=== PATIENT | male | born 1985 | race Caucasian/White ===

== ENCOUNTER 2019-07-27 19:02 | Emergency (ER) | payer BC ==
--- NOTE | 2019-07-27 19:56 | ED ---
Skin Complaint - HPI Summary HPI Summary: Patient is a 34 year old male who has a chief complaint of multiple skin abscesses on his right arm. Patient states he noticed what appeared to be a pimple on his right forearm 5 days ago. At this time he tried to pop it with a knife. The lesions have since increased in number. He continues to drain them. States that he was using hydrogen peroxide daily until today when he started using triple antibiotic ointment. States that the entire dorsal aspect of his right forearm is painful, swollen, and warm. Notes that the pain and redness goes up his arm. Has not noticed a fever. Denies nausea or vomiting. No history of MRSA. - History of Current Complaint Chief Complaint: EDRashSkinAbscess Time Seen by Provider: 07/27/19 19:39 Stated Complaint: RT ARM PAIN PER PT Pain Intensity: 5 - Allergy/Home Medications Allergies/Adverse Reactions: Allergies Allergy/AdvReac Type Severity Reaction Status Date / Time No Known Allergies Allergy Verified 07/27/19 19:07 PMH/Surg Hx/FS Hx/Imm Hx Endocrine/Hematology History: Denies: Hx Anticoagulant Therapy Respiratory History: Denies: Hx Asthma Musculoskeletal History: Reports: Other Musculoskeletal History - OCC RIGHT SCIATIC PAIN Sensory History: Reports: Hx Contacts or Glasses - GLASSES Denies: Hx Hearing Aid Opthamlomology History: Reports: Hx Contacts or Glasses - GLASSES - Surgical History Surgery Procedure, Year, and Place: AGE 16 RIGHT INGUINAL [place]ERNIA. [place] [facility] [place] [facility] [place] Anesthesia Reactions: No - Immunization History Date of Tetanus Vaccine: Last year, per patient Date of Influenza Vaccine: None Infectious Disease History: No Infectious Disease History: Denies: Traveled Outside the [place] in Last 30 Days - Family History Known Family History: Positive: Non-Contributory - Social History Alcohol Use: Daily Alcohol Amount: 1-2 BEERS/DAY Substance Use Type: Reports: None Smoking Status (MU): Heavy Every Day Tobacco Smoker Type: Cigarettes Amount Used/How Often: 1 PPD Length of Time of Smoking/Using Tobacco: 10 YRS Have You Smoked in the Last Year: Yes Review of Systems Constitutional: Negative Eyes: Negative ENT: Negative Cardiovascular: Negative Respiratory: Negative Gastrointestinal: Negative Genitourinary: Negative Musculoskeletal: Negative Positive: Other - Multiple painful abscesses on the dorsal aspect of right, warmth that extends from dorsal forearm up arm Neurological: Negative Psychological: Normal All Other Systems Reviewed And Are Negative: Yes Physical Exam Triage Information Reviewed: Yes Vital Signs On Initial Exam: Initial Vitals Temp Pulse Resp BP Pulse Ox 98.2 F 86 16 131/100 100 07/27/19 19:04 07/27/19 19:04 07/27/19 19:04 07/27/19 19:04 07/27/19 19:04 Vital Signs Reviewed: Yes Appearance: Positive: Well-Appearing, No Pain Distress, Well-Nourished Skin: Positive: Warm, Skin Color Reflects Adequate Perfusion, Dry, Other - Abscess on dorsal forearm with 5 cm diamter of indurataion, central punctate. Erythematous. Warm and tender to the touch. Smaller 1-2 cm healing lesion noted distal. No tunneling. Streaking noted up right arm. Head/Face: Positive: Normal Head/Face Inspection Eyes: Positive: Normal, EOMI ENT: Positive: Normal ENT inspection Neck: Positive: Supple, Nontender, No Lymphadenopathy Respiratory/Lung Sounds: Positive: Clear to Auscultation Cardiovascular: Positive: Normal, RRR, S1, S2 Musculoskeletal: Positive: Normal Neurological: Positive: Normal Psychiatric: Positive: Normal Procedures - Sedation Patient Received Moderate/Deep Sedation with Procedure: No - Incision and Drainage right arm Site: right arm Anesthesia: Local Instrument(s): Scalpel Diagnostics - Vital Signs Vital Signs Temp Pulse Resp BP Pulse Ox 07/27/19 19:04 98.2 F 86 16 131/100 100 - Laboratory Lab Statement: Any lab studies that have been ordered have been reviewed, and results considered in the medical decision making process. Course/Dx - Course Course Of Treatment: 34 year old male who presnts with 5 days of worsening skin lesion. Patient admits to draining with knife. Right forearm erythematous, warm , swollen, and tender. 5 cm diameter abscess with central punctation noted. Abscess drained by FRACISCO Calles. Clidamycin sent to pharmacy. Patient understands and agrees with this plan. - Differential Diagnoses - Skin Complaint Differential Diagnoses: Abscess, Cellulitis, Contact Dermatitis - Diagnoses Provider Diagnoses: Abscess of left arm Discharge ED - Sign-Out/Discharge Documenting (check all that apply): Patient Departure - Discharge Plan Condition: Good Disposition: HOME Prescriptions: Clindamycin Cap(NF) [Clindamycin Cap 300 mg Cap(NF)] 300 mg PO TID #29 cap Patient Education Materials: Abscess (ED) Referrals: [facility] [Outside] Additional Instructions: Take antibiotic three a day for 10 days, first dose given in ED Apply warm compresses to area Take ibuprofen or Tylenol for pain every 6 hours Follow up with primary within 3 days Return to ED if develop fever, area of redness spreads, or any new or worsening symptoms - Billing Disposition and Condition Condition: GOOD Disposition: Home
[2019-07-27] MEDS ORDERED: Lidocaine 1% MPF ** 5 ML VIAL INJ ONE (20:04)
[2019-07-27] MEDS ORDERED: Clindamycin CAP* 150 MG PO ONE (20:27)
[2019-07-27 21:13] VITALS: BP 128/81
--- NOTE | 2019-07-30 05:40 | ED ---
Imaging and Labs Follow Up Follow Up Type: Labs/Cultures Labs/Culture Result: Wound Culture MRSA positive, Pt treated appropriately with clindamycin. Patient Communication/Plan: Pt treated appropriately, nothing further at this time. Provider Diagnoses: Abscess of left arm
== END 2019-07-27 21:11 | disposition home or self-care (01) ==
LOC: ED 19:02
DX: L02.413 Cutaneous abscess of right upper limb (principal); F17.210 Nicotine dependence, cigarettes, uncomplicated
CPT/HCPCS: 10060; 87070; 87077; 87186; 87205; 87640; 87641; 99283; A9270-GY

== ENCOUNTER 2019-07-28 19:19 | Observation (INO) | payer BC ==
[2019-07-28] MEDS ORDERED: NS 0.9% 1000 ML** 1,000 ML IV.FLUID IV ONE (19:29)
[2019-07-28] MEDS ORDERED: Vancomycin(*) 1,500 MG in NS 0.9% 250 ML* 250 ML IVPB ONE (19:36)
[2019-07-28] MEDS ORDERED: LORazepam INJ* 2 MG/ML 1 ML VIAL IV PUSH ONE (19:39)
[2019-07-28] MEDS ORDERED: Lorazepam PYXIS KEY PRN (19:39)
[2019-07-28] MEDS ORDERED: Lorazepam PYXIS KEY ONE (19:42)
[2019-07-28 19:59] LABS: ABS Basophils 0.1 10^3/ul (0-0.2); ABS Eosinophils 0.5 10^3/ul (0-0.6); ABS Lymphocytes 1.8 10^3/ul (1.0-4.8); ABS Monocytes 1.3 10^3/ul (0-0.8); ABS Neutrophils 12.8 10^3/ul (1.5-7.7); Eosinophil % 2.8 %; Hematocrit 44 % (42-52); Hemoglobin 15.5 g/dL (14.0-18.0); Mean Corpuscular HGB Conc 35 g/dL (31-36); Mean Corpuscular Hemoglobin 32 pg (27-31); Mean Corpuscular Volume 90 fL (80-94); Mean Platelet Volume 9.6 fL (7.4-10.4); Nucleated Red Blood Cells % 0.1; Platelet Count 171 10^3/uL (150-450); Red Blood Count 4.93 10^6 /uL (4.18-5.48); Red Cell Distribution Width 13 % (10-15); White Blood Count 16.4 10^3/uL (3.5-10.8)
[2019-07-28 20:07] LABS: Activated Partial Thrombo Time 37.2 seconds (26.0-38.0)
--- NOTE | 2019-07-28 20:10 | ED ---
Skin Complaint - HPI Summary HPI Summary: 34 year old female presents with worsening rash today. He had an abscess on his arm that was drained yesterday. He states he started the antibiotic last night. He took 5 doses of the antibiotic so far. He states the redness has been spreading. Admits to chills but no fevers. The area has become more swollen. He has never had this before. He is not diabetic. 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 no chest pain, sob, cough. no other symptoms. - History of Current Complaint Chief Complaint: EDExtremityUpper Time Seen by Provider: 07/28/19 19:28 Stated Complaint: ABCESS ON ARM Pain Intensity: 6 - Allergy/Home Medications Allergies/Adverse Reactions: Allergies Allergy/AdvReac Type Severity Reaction Status Date / Time No Known Allergies Allergy Verified 07/27/19 19:07 Home Medications: Home Medications Ibuprofen 600 mg PO QID PRN 07/28/19 [History Confirmed 07/28/19] PMH/Surg Hx/FS Hx/Imm Hx Endocrine/Hematology History: Denies: Hx Anticoagulant Therapy, Hx Diabetes Respiratory History: Denies: Hx Asthma Musculoskeletal History: Reports: Other Musculoskeletal History - OCC RIGHT SCIATIC PAIN Sensory History: Reports: Hx Contacts or Glasses - GLASSES Denies: Hx Hearing Aid Opthamlomology History: Reports: Hx Contacts or Glasses - GLASSES - Surgical History Surgery Procedure, Year, and Place: AGE 16 RIGHT INGUINAL HERNIA. APPENDECTOMY 2014 [facility]. LEFT INGUINAL HERNIA 2014 [facility] Hx Anesthesia Reactions: No - Immunization History Date of Tetanus Vaccine: Last year, per patient Date of Influenza Vaccine: None Infectious Disease History: No Infectious Disease History: Denies: Traveled Outside the [place] in Last 30 Days - Family History Known Family History: Positive: Non-Contributory - Social History Alcohol Use: Weekly Alcohol Amount: 1-2 BEERS/DAY Substance Use Type: Reports: None Smoking Status (MU): Heavy Every Day Tobacco Smoker Type: Cigarettes Amount Used/How Often: 1 PPD Length of Time of Smoking/Using Tobacco: 10 YRS Have You Smoked in the Last Year: Yes Review of Systems Negative: Fever Negative: Chest Pain Negative: Shortness Of Breath Positive: Rash All Other Systems Reviewed And Are Negative: Yes Physical Exam Triage Information Reviewed: Yes Vital Signs On Initial Exam: Initial Vitals Temp Pulse Resp BP Pulse Ox 97.5 F 105 18 132/90 100 07/28/19 19:21 07/28/19 19:21 07/28/19 19:21 07/28/19 19:21 07/28/19 19:21 Vital Signs Reviewed: Yes Appearance: Positive: Well-Appearing Skin: Positive: Warm, Dry, Other - has abscess on right arm with streaking up right arm and down right arm Head/Face: Positive: Normal Head/Face Inspection Eyes: Positive: Normal, Conjunctiva Clear ENT: Positive: Pharynx normal Respiratory/Lung Sounds: Positive: Clear to Auscultation, Breath Sounds Present Cardiovascular: Positive: Normal, RRR Musculoskeletal: Positive: Strength/ROM Intact - right arm, Other - good pulses Neurological: Positive: Normal Psychiatric: Positive: Normal Procedures - Sedation Patient Received Moderate/Deep Sedation with Procedure: No Diagnostics - Vital Signs Vital Signs Temp Pulse Resp BP Pulse Ox 07/28/19 19:48 104 148/92 97 07/28/19 19:47 101 99 07/28/19 19:44 20 07/28/19 19:21 97.5 F 105 18 132/90 100 - Laboratory Lab Results: Lab Results 07/28/19 07/28/19 Range/Units 19:52 19:52 WBC 16.4 H (3.5-10.8) 10^3/uL RBC 4.93 (4.18-5.48) 10^6 /uL Hgb 15.5 (14.0-18.0) g/dL Hct 44 (42-52) % MCV 90 (80-94) fL MCH 32 H (27-31) pg MCHC 35 (31-36) g/dL RDW 13 (10-15) % Plt Count 171 (150-450) 10^3/uL MPV 9.6 (7.4-10.4) fL Neut % (Auto) 78.2 % Lymph % (Auto) 11.0 % Gilliam % (Auto) 7.7 % Eos % (Auto) 2.8 % Baso % (Auto) 0.3 % Absolute Neuts (auto) 12.8 H (1.5-7.7) 10^3/ul Absolute Lymphs (auto) 1.8 (1.0-4.8) 10^3/ul Absolute Monos (auto) 1.3 H (0-0.8) 10^3/ul Absolute Eos (auto) 0.5 (0-0.6) 10^3/ul Absolute Basos (auto) 0.1 (0-0.2) 10^3/ul Absolute Nucleated RBC 0.0 10^3/ul Nucleated RBC % 0.1 INR (Anticoag Therapy) 1.00 (0.82-1.09) APTT 37.2 (26.0-38.0) seconds Result Diagrams: 07/28/19 19:52 07/28/19 19:52 Lab Statement: Any lab studies that have been ordered have been reviewed, and results considered in the medical decision making process. Course/Dx - Course Course Of Treatment: 34 year old female presents with worsening rash today. He had an abscess on his arm that was drained yesterday. He states he started the antibiotic last night. He took 5 doses of the antibiotic so far. He states the redness has been spreading. Admits to chills but no fevers. The area has become more swollen. He has never had this before. He is not diabetic. 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 On exam has diffuse erythema of the right arm. Has the draining abscess noted with no fluctuation but is indurate present. wbc 18. With worsening rash will admit. dr nelson agrees to admit. - Differential Diagnoses - Skin Complaint Differential Diagnoses: Abscess, Cellulitis, Contact Dermatitis - Diagnoses Provider Diagnoses: Cellulitis of right arm Discharge ED - Sign-Out/Discharge Documenting (check all that apply): Patient Departure - Discharge Plan Condition: Stable Disposition: ADMITTED TO [facility] - Billing Disposition and Condition Condition: STABLE Disposition: Admitted to [facility]
[2019-07-28 20:15] LABS: Albumin/Globulin Ratio 1.4 (1-3); BUN/Creatinine Ratio 18.2 (8-20); C Reactive Protein 87.42 mg/L (<8.01); Calcium 9.5 mg/dL (8.6-10.3); EGFR African American 118.6 (>60); Globulin 2.9 g/dL (2-4); Potassium 3.8 mmol/L (3.5-5.0); Total Bilirubin 0.8 mg/dL (0.2-1.0); Total Protein 6.9 g/dL (6.4-8.9)
[2019-07-28] MEDS ORDERED: Acetaminophen TAB* 325 MG PO PRN (21:36)
[2019-07-28] MEDS ORDERED: Vancomycin(*) 1,000 MG in NS 0.9% 250 ML* 250 ML IVPB ONE (21:39)
[2019-07-28] MEDS ORDERED: Nicotine* 2MG (FRUIT FLAVOR) GUM PO PRN (21:41)
[2019-07-28] MEDS ORDERED: Ibuprofen TAB* 600 MG PO PRN (21:41)
[2019-07-28] MEDS ORDERED: LORazepam TAB(*) 0.5 MG PO PRN (21:41)
[2019-07-28] MEDS ORDERED: Vancomycin per Pharmacy* NOTE FOLLOW UP SCH (22:00)
[2019-07-28] MEDS: NS 0.9% 1000 ML** 1,000 ML IV SCH (22:58)
[2019-07-28] MEDS: Heparin VIAL(*) 5000 UNITS/ML VIAL (FIVE THOUSAND) SUBCUT SCH (23:33)
[2019-07-28] MEDS: Nicotine PATCH 21 MG/24 HR* PATCH TRANSDERM SCH (23:34)
--- NOTE | 2019-07-29 01:25 | HP ---
HISTORY AND PHYSICAL: DATE OF ADMISSION: 07/28/19 PRIMARY CARE PROVIDER: None. CHIEF COMPLAINT: Right arm cellulitis, worse. HISTORY OF PRESENT ILLNESS: Micah Kuhn is a 34-year-old male who had an I and D of his right arm abscess yesterday by ED provider. The patient was placed on clindamycin and received several doses of clindamycin for the past 24 hours. The patient noted that he has more swelling and erythema in his right arm today. His temperature was 99.1. He came into the ED for evaluation. His cellulitis appears to have spread close to his right axillary region and he is going to be placed on overnight observation with diagnosis of sepsis and cellulitis. Of note, a sample was taken from the abscess yesterday, positive for MRSA. PAST MEDICAL HISTORY: 1. Inguinal hernia repair. 2. Appendectomy. MEDICATIONS: Include: 1. Clindamycin 300 mg 3 times a day. 2. Ibuprofen on a p.r.n. basis. ALLERGIES: No known drug allergies. FAMILY HISTORY: Both parents healthy. SOCIAL HISTORY: The patient smokes a pack per day and he started smoking when he was a teenager. He drinks a 12-pack of beer at night on weekends, does not drink during the weekdays. 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 He lives with his , Shonda, who is a surrogate. REVIEW OF SYSTEMS: Please see history of present illness. In addition, to the above mentioned, the patient noted "shakes" when he was in the ED. He received 2 doses of intravenous Ativan. He stated that sometimes he gets anxious "like that." I questioned if the patient had rigors. Currently, he feels relaxed. He stated that he did not experience any fevers at home. All the remaining 12 systems were reviewed with the patient and were otherwise negative. PHYSICAL EXAMINATION GENERAL: The patient is a very pleasant 34-year-old, obese male, who is in no acute distress. Alert and oriented x3. VITAL SIGNS: Blood pressure of 135/81, heart rate of 96 and regular, respiratory rate 14, oxygen saturation 97% on room air, and temperature 98.1. HEENT: Head: Atraumatic, normocephalic. Eyes: Pupils are equal, reactive to light and accommodation. Oropharynx is clear. Mucosa moist. Very poor dentition. NECK: Supple. No JVD. No bruits bilaterally. RESPIRATORY: Clear to auscultation bilaterally. CARDIOVASCULAR: Regular rate and rhythm. No murmur. ABDOMEN: Soft, nontender. Bowel sounds are present in all 4 quadrants. EXTREMITIES: In the right upper extremity, tense and swollen with a small area of opened up cyst of approximately half of a centimeter draining purulent substance, approximately 10 cm, from the patient wrist on the lateral aspect of the right arm. From there, the edema and erythema spreads up to close the patient's right axillary region. NEURO: Speech is clear. Cranial nerves II through XII grossly intact. Motor strength is 5/5 bilaterally. PSYCHIATRIC: Oriented x3 with no evidence of anxiety, depression. SKIN: On evaluation of the remaining part of the skin, the patient has rather poor hygiene, but no other abscesses or cellulitis noted. No other rashes noted. DIAGNOSTIC STUDIES/LAB DATA: White blood cell count 15.4, hemoglobin 15.5, hematocrit 44, and platelets 171. Sodium 137, potassium 3.8, chloride 105, carbon dioxide 26, BUN 16, creatinine 0.88. C-reactive protein 87. ASSESSMENT AND PLAN: 1. Sepsis due to methicillin-resistant Staphylococcus aureus infection of the right forearm. The patient is going to be placed on overnight observation, treated with vancomycin. Administered intravenous fluids. His lactic acid is 1 today. He did receive nearly 3 L of intravenous bolus in the ED. 2. Anxiety. I questioned if the patient had rigors in the ED. Nevertheless, I will continue Ativan on as needed basis. 3. For DVT prophylaxis, the patient is going to be placed on heparin subcutaneously. He is at moderate risk. 4. The patient's code status is full. His surrogate is his . TIME SPENT: Approximately 65 minutes was spent on admission of this patient, more than half that time was spent [id number] with the patient during the interview and physical exam. [id number]/[facility] #: [id number] [facility] HEALTH SYSTEMKamran
[2019-07-29] MEDS: Vancomycin(*) 1,000 MG in NS 0.9% 250 ML* 250 ML IV SCH ×3 (03:14→16:21)
[2019-07-29 03:37] LABS: Urine Appearance Clear; Urine Bilirubin Negative (Negative); Urine Blood Negative (Negative); Urine Color Yellow; Urine Glucose Negative (Negative); Urine Ketones Trace (Negative); Urine Nitrite Negative (Negative); Urine Protein Negative (Negative); Urine Specific Gravity 1.016 (1.010-1.030); Urine Urobilinogen Negative (Negative)
[2019-07-29 04:49] LABS: ABS Basophils 0.1 10^3/ul (0-0.2); ABS Eosinophils 0.5 10^3/ul (0-0.6); ABS Lymphocytes 1.8 10^3/ul (1.0-4.8); Eosinophil % 3.6 %; Hematocrit 41 % (42-52); Hemoglobin 14.3 g/dL (14.0-18.0); Lymphocyte % 13.6 %; Mean Corpuscular HGB Conc 35 g/dL (31-36); Mean Corpuscular Hemoglobin 32 pg (27-31); Mean Corpuscular Volume 90 fL (80-94); Mean Platelet Volume 9.7 fL (7.4-10.4); Platelet Count 149 10^3/uL (150-450); Red Blood Count 4.52 10^6 /uL (4.18-5.48); Red Cell Distribution Width 13 % (10-15); White Blood Count 13.4 10^3/uL (3.5-10.8)
[2019-07-29 04:55] LABS: BUN/Creatinine Ratio 15.9 (8-20); Calcium 8.2 mg/dL (8.6-10.3); EGFR Non-African American 129.7 (>60); Potassium 3.9 mmol/L (3.5-5.0)
[2019-07-29] MEDS: Heparin VIAL(*) 5000 UNITS/ML VIAL (FIVE THOUSAND) SUBCUT SCH ×3 (05:42→21:16)
[2019-07-29] MEDS: NS 0.9% 1000 ML** 1,000 ML IV SCH ×2 (08:23→18:12)
--- NOTE | 2019-07-29 11:59 | CONSULT ---
Consult Consult: HPI: 34 year old male presented to the ER with erythema and swelling of his right arm. He states that he had an pimple on his arm a few days ago. He states that he drained it with an exacto knife and washed it regularly with hydrogen peroxide. He states that the pimple become red and painful. He states that he did have some streaking up his arm that has resolved with use of IV antibiotics. He states the redness has been spreading. Denies any fevers or chills. 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 no chest pain, sob, cough. no other symptoms. Allergies Allergy/AdvReac Type Severity Reaction Status Date / Time No Known Allergies Allergy Verified 07/27/19 19:07 Home Medications: Home Medications Ibuprofen 600 mg PO QID PRN 07/28/19 [History Confirmed 07/28/19] PMH - Right sciatica pain - Surgical History Surgery Procedure, Year, and Place: AGE 16 RIGHT INGUINAL HERNIA. APPENDECTOMY 2014 [facility] [place]. LEFT INGUINAL HERNIA 2014 [facility] [place] Hx Anesthesia Reactions: No - Family History Known Family History: Positive: Non-Contributory - Social History Alcohol Use: Weekly Alcohol Amount: 1-2 BEERS/DAY Substance Use Type: Reports: None Smoking Status (MU): Heavy Every Day Tobacco Smoker Type: Cigarettes Amount Used/How Often: 1 PPD Length of Time of Smoking/Using Tobacco: 10 YRS Have You Smoked in the Last Year: Yes Review of Systems Negative: Fever Negative: Chest Pain Negative: Shortness Of Breath All Other Systems Reviewed And Are Negative: Yes Physical Exam Vital Signs Temp 97.9 F 07/29/19 08:29 Pulse 94 07/29/19 08:29 Resp 16 07/29/19 08:29 BP 114/73 07/29/19 08:29 Pulse Ox 98 07/29/19 08:29 Intake & Output 07/28/19 07/29/19 07/29/19 18:59 06:59 18:59 Intake Total 3287 945 Output Total 1050 Balance 2237 945 Weight 209 lb 14.4 oz Intake: IV Fluids 3287 825 Oral 0 120 Output: Urine 1050 Appearance: Positive: Well-Appearing Skin: Positive: Warm, Dry, Other - Small abcess on right arm present. No streaking present. He does have swelling present up past the elbow. Head/Face: PNormal Head/Face Inspection Eyes: Positive: Normal, Conjunctiva Clear Musculoskeletal: ROM of the right elbow is 5 - 140 without pain. He is able to supinate and pronate without pain also. There is some fluctuance of the olecranon present. No pain at the olecranon bursa. No tenderness to palpation throughout the elbow and forearm. Small ulcer present on mid forearm. No drainage at this point. NVI. US report shows no sonographic evidence of elbow effusion. ASSESSMENT: Right upper extremity cellulitis s/p exacto knife puncture PLAN: Considering the pt has very good ROM of the elbow with no pain and the streaking has improved significantly we feel it would be beneficial to continue with IV antibiotics. We will continue to monitor him in the coming days. He can ice the elbow, continue to elevate to help with swelling and continue to move the elbow.
--- NOTE | 2019-07-29 13:31 | PN ---
Subjective Date of Service: 07/29/19 Interval History: Patient had no complains of pain or restricted ROM of right arm, no fever, no chills. Reviewed history, he recalled a pimple initially, he popped it, and turned into bigger abscess which was subsequently drained in ED. He received 3 doses of clindamycin in total before admission. Objective Active Medications: Acetaminophen (Tylenol Tab*) 650 mg PO Q4H PRN PRN Reason: PAIN-MILD/TEMP >/= 100.4 Heparin Sodium (Porcine) (Heparin Vial(*)) 5,000 units SUBCUT Q8HR [facility] Last Admin: 07/29/19 05:42 Dose: 5,000 units Sodium Chloride (Ns 0.9% 1000 Ml) 1,000 mls @ 125 mls/hr IV PER RATE [facility] Last Admin: 07/29/19 08:23 Dose: 125 mls/hr Vancomycin HCl 1,000 mg/ (Sodium Chloride) 250 mls @ 166.667 mls/hr IV 0200, 0800,1400,2000 [facility] Last Admin: 07/29/19 08:24 Dose: 166.667 mls/hr Ibuprofen (Motrin Tab*) 600 mg PO QID PRN PRN Reason: PAIN - MODERATE Last Admin: 07/28/19 23:34 Dose: 600 mg Lorazepam (Ativan Tab(*)) 0.5 mg PO Q4H PRN PRN Reason: ANXIETY Miscellaneous (Ativan Pyxis Mauricio) 1 ea N/A .ATIVAN IV MAURICIO PRN PRN Reason: PYXIS MAURICIO Nicotine (Nicotine Patch 21 Mg/24 Hr*) 1 patch TRANSDERM 0900 [facility] Last Admin: 07/28/19 23:34 Dose: 1 patch Nicotine Polacrilex (Nicotine Gum*) 2 mg PO Q2H PRN PRN Reason: CRAVING Pharmacy Consult (Vancomycin Per Pharmacy*) 1 note FOLLOW UP .VANC PER PHARMACY [facility]; Protocol Pharmacy Profile Note (Nicotine Patch Removal Note*) 1 note PATCH OFF 2100 [facility] Pharmacy Profile Note (Vancomycin Trough Check) 1 note FOLLOW UP 1400 ONE Stop: 07/29/19 14:01 Vital Signs - 8 hr 07/29/19 07/29/19 07/29/19 08:00 08:29 11:22 Temperature 97.9 F 97.7 F Pulse Rate 94 83 Respiratory 16 16 Rate Blood Pressure 114/73 114/67 (mmHg) O2 Sat by Pulse 98 98 98 Oximetry Oxygen Devices in Use Now: None Exam: Gen: well groomed gentleman, not in acute distress. HEENT: NC/AT, PERRLA Neck: soft, supple, neg cervical LAD, neg JVD HEART: S1S2 WNL, RRR, no MRG Chest: clear Ext: ROM intact. Right arm swelling up to shoulder, erythema over right elbow and right forearm wound, fluctuation felt over right elbow; warmth up to right shoulder. Neuro: oriented x4 Mood: stable Result Diagrams: 07/29/19 04:22 07/29/19 04:22 Additional Lab and Data: Lab Results 07/28/19 07/28/19 Range/Units 19:52 19:52 WBC 16.4 H (3.5-10.8) 10^3/uL RBC 4.93 (4.18-5.48) 10^6 /uL Hgb 15.5 (14.0-18.0) g/dL Hct 44 (42-52) % MCV 90 (80-94) fL MCH 32 H (27-31) pg MCHC 35 (31-36) g/dL RDW 13 (10-15) % Plt Count 171 (150-450) 10^3/uL MPV 9.6 (7.4-10.4) fL Neut % (Auto) 78.2 % Lymph % (Auto) 11.0 % Grimes % (Auto) 7.7 % Eos % (Auto) 2.8 % Baso % (Auto) 0.3 % Absolute Neuts (auto) 12.8 H (1.5-7.7) 10^3/ul Absolute Lymphs (auto) 1.8 (1.0-4.8) 10^3/ul Absolute Monos (auto) 1.3 H (0-0.8) 10^3/ul Absolute Eos (auto) 0.5 (0-0.6) 10^3/ul Absolute Basos (auto) 0.1 (0-0.2) 10^3/ul Absolute Nucleated RBC 0.0 10^3/ul Nucleated RBC % 0.1 INR (Anticoag Therapy) 1.00 (0.82-1.09) APTT 37.2 (26.0-38.0) seconds Assess/Plan/Problems-Billing Assessment: 34 y/o male presented with right arm swelling after popping right forearm pimple , found to have localized abscess s/p I&D and right arm cellulitis, confirmed to MRSA. - Patient Problems (1) Cellulitis Current Visit: Yes Status: Acute Code(s): L03.90 - CELLULITIS, UNSPECIFIED SNOMED Code(s): 129656987 Comment: - right arm cellulitis after popping a pimple - local I&D done in ED, cs showing MRSA+ - start iv vancomycin - consult ortho today in view of erythema and fluctuance in right elbow, concern of right joint effusion - US elbow to look for joint effusion - contact precaution (2) Tobacco dependence Current Visit: Yes Status: Acute Code(s): F17.200 - NICOTINE DEPENDENCE, UNSPECIFIED, UNCOMPLICATED SNOMED Code(s): 41875827 Comment: nicotine gum (3) DVT prophylaxis Current Visit: Yes Status: Acute Code(s): Z29.9 - ENCOUNTER FOR PROPHYLACTIC MEASURES, UNSPECIFIED SNOMED Code(s): 660467353 Comment: sc heparin Status and Disposition: Inpatient Medicine. Attestation Documenting Resident: Telma Gallardo Supervising Physician: Erich Almonte Attending/Supervising Physician Comment: MRSA abscess, was not improving on clindamycin and sensitivities now show resistance. Continue vancomycin for now. Full ROM at elbow without pain. 0.4 cm thick fluid collection remains on US and ortho was consulted for possible I&D but they suggest monitor on antibiotics for now. It is sensitive to bactrim and doxy as home going options. Attestation: This service has been performed in part by a resident under the direction of a teaching physician.I, Erich Almonte, performed the service, or was physically present during the critical, or mauricio portions of the service, furnished by the resident. I participated in the management of the patient.
[2019-07-29] MEDS ORDERED: Vancomycin Trough Check NOTE FOLLOW UP ONE (14:00)
[2019-07-29] MEDS: Vancomycin(*) 1,500 MG in NS 0.9% 250 ML* 250 ML IVPB SCH (16:09)
[2019-07-29] MEDS: Nicotine Patch Removal NOTE PATCH OFF SCH (21:16)
[2019-07-30] MEDS: Vancomycin(*) 1,500 MG in NS 0.9% 250 ML* 250 ML IVPB SCH ×3 (00:41→15:41)
[2019-07-30] MEDS: Heparin VIAL(*) 5000 UNITS/ML VIAL (FIVE THOUSAND) SUBCUT SCH ×3 (05:35→21:21)
[2019-07-30] MEDS: NS 0.9% 1000 ML** 1,000 ML IV SCH ×2 (05:36→15:41)
[2019-07-30] MEDS: Nicotine PATCH 21 MG/24 HR* PATCH TRANSDERM SCH (08:10)
[2019-07-30 09:36] LABS: ABS Basophils 0.1 10^3/ul (0-0.2); ABS Eosinophils 0.4 10^3/ul (0-0.6); ABS Lymphocytes 1.3 10^3/ul (1.0-4.8); ABS Monocytes 0.6 10^3/ul (0-0.8); ABS Neutrophils 6.4 10^3/ul (1.5-7.7); Eosinophil % 4.9 %; Hematocrit 40 % (42-52); Hemoglobin 13.8 g/dL (14.0-18.0); Lymphocyte % 15.2 %; Mean Corpuscular HGB Conc 35 g/dL (31-36); Mean Corpuscular Hemoglobin 31 pg (27-31); Mean Corpuscular Volume 90 fL (80-94); Nucleated Red Blood Cells % 0.2; Platelet Count 149 10^3/uL (150-450); Red Blood Count 4.44 10^6 /uL (4.18-5.48); Red Cell Distribution Width 13 % (10-15); White Blood Count 8.8 10^3/uL (3.5-10.8)
[2019-07-30 09:56] LABS: BUN/Creatinine Ratio 11.3 (8-20); C Reactive Protein 35.7 mg/L (<8.01); EGFR African American 151.9 (>60); EGFR Non-African American 125.5 (>60)
--- NOTE | 2019-07-30 11:38 | PN ---
Progress Note - Progress Note Date of Service: 07/30/19 SOAP: Subjective: Pt seen and examined at bedside. States the selling is down from yesterday. States pain is less today and is localized around the abscess. Denies F/C. Vital Signs: Temp Pulse Resp BP Pulse Ox 98.3 F 75 16 130/69 99 07/30/19 07:15 07/30/19 07:15 07/30/19 07:15 07/30/19 07:15 07/30/19 08:00 Laboratory Last Values WBC 8.8 10^3/uL (3.5-10.8) 07/30/19 09:17 RBC 4.44 10^6 /uL (4.18-5.48) 07/30/19 09:17 Hgb 13.8 g/dL (14.0-18.0) L 07/30/19 09:17 Hct 40 % (42-52) L 07/30/19 09:17 MCV 90 fL (80-94) 07/30/19 09:17 MCH 31 pg (27-31) 07/30/19 09:17 MCHC 35 g/dL (31-36) 07/30/19 09:17 RDW 13 % (10-15) 07/30/19 09:17 Plt Count 149 10^3/uL (150-450) L 07/30/19 09:17 MPV 9.0 fL (7.4-10.4) 07/30/19 09:17 Neut % (Auto) 72.4 % 07/30/19 09:17 Lymph % (Auto) 15.2 % 07/30/19 09:17 [place] % (Auto) 6.8 % 07/30/19 09:17 Eos % (Auto) 4.9 % 07/30/19 09:17 Baso % (Auto) 0.7 % 07/30/19 09:17 Absolute Neuts (auto) 6.4 10^3/ul (1.5-7.7) 07/30/19 09:17 Absolute Lymphs (auto) 1.3 10^3/ul (1.0-4.8) 07/30/19 09:17 Absolute Monos (auto) 0.6 10^3/ul (0-0.8) 07/30/19 09:17 Absolute Eos (auto) 0.4 10^3/ul (0-0.6) 07/30/19 09:17 Absolute Basos (auto) 0.1 10^3/ul (0-0.2) 07/30/19 09:17 Absolute Nucleated RBC 0.0 10^3/ul 07/30/19 09:17 Nucleated RBC % 0.2 07/30/19 09:17 INR (Anticoag Therapy) 1.00 (0.82-1.09) 07/28/19 19:52 APTT 37.2 seconds (26.0-38.0) 07/28/19 19:52 Sodium 140 mmol/L (135-145) 07/30/19 09:17 Potassium 4.0 mmol/L (3.5-5.0) 07/30/19 09:17 Chloride 108 mmol/L (101-111) 07/30/19 09:17 Carbon Dioxide 25 mmol/L (22-32) 07/30/19 09:17 Anion Gap 7 mmol/L (2-11) 07/30/19 09:17 BUN 8 mg/dL (6-24) 07/30/19 09:17 Creatinine 0.71 mg/dL (0.67-1.17) 07/30/19 09:17 Est GFR ( Amer) 151.9 (>60) 07/30/19 09:17 Est GFR (Non-Af Amer) 125.5 (>60) 07/30/19 09:17 BUN/Creatinine Ratio 11.3 (8-20) 07/30/19 09:17 Glucose 107 mg/dL (70-100) H 07/30/19 09:17 Lactic Acid 1.0 mmol/L (0.5-2.0) 07/28/19 19:52 Calcium 9.0 mg/dL (8.6-10.3) 07/30/19 09:17 Total Bilirubin 0.80 mg/dL (0.2-1.0) 07/28/19 19:52 AST 22 U/L (13-39) 07/28/19 19:52 ALT 24 U/L (7-52) 07/28/19 19:52 Alkaline Phosphatase 81 U/L (34-104) 07/28/19 19:52 C-Reactive Protein 35.70 mg/L (<8.01) H 07/30/19 09:17 Total Protein 6.9 g/dL (6.4-8.9) 07/28/19 19:52 Albumin 4.0 g/dL (3.2-5.2) 07/28/19 19:52 Globulin 2.9 g/dL (2-4) 07/28/19 19:52 Albumin/Globulin Ratio 1.4 (1-3) 07/28/19 19:52 Urine Color Yellow 07/29/19 03:20 Urine Appearance Clear 07/29/19 03:20 Urine pH 6.0 (5-9) 07/29/19 03:20 Ur Specific [place] 1.016 (1.010-1.030) 07/29/19 03:20 Urine Protein Negative (Negative) 07/29/19 03:20 Urine Ketones Trace (Negative) A 07/29/19 03:20 Urine Blood Negative (Negative) 07/29/19 03:20 Urine Nitrate Negative (Negative) 07/29/19 03:20 Urine Bilirubin Negative (Negative) 07/29/19 03:20 Urine Urobilinogen Negative (Negative) 07/29/19 03:20 Ur Leukocyte Esterase Negative (Negative) 07/29/19 03:20 Urine Glucose Negative (Negative) 07/29/19 03:20 Urine Ascorbic Acid * (Negative) A 07/29/19 03:20 Vancomycin Trough 9.4 mcg/mL 07/29/19 14:14 Objective: A&O x3, NAD Dressing C/D/I, moderate swelling right forearm up to elbow, no erythema, Full ROM elbow, wrist and hand. NVI distally. Assessment: 34 yo male RUE cellulitis Plan: Continue IV abx Continue Ice, elevation and ROM exercises Will continue to monitor
--- NOTE | 2019-07-30 12:09 | PN ---
Subjective Date of Service: 07/30/19 Interval History: No acute events overnight, afebrile. WBC down to 8.8. Denies pain in the elbow or wrist with movement, bending. Some localized pain at area of the abscess. No drainage Some slight transient chills/warmth. Eating, BM+. No current PCP, previous provider (he can't remember name) left practice. Lives in [place]. Objective Active Medications: Acetaminophen (Tylenol Tab*) 650 mg PO Q4H PRN PRN Reason: PAIN-MILD/TEMP >/= 100.4 Heparin Sodium (Porcine) (Heparin Vial(*)) 5,000 units SUBCUT Q8HR [facility] Last Admin: 07/30/19 05:35 Dose: 5,000 units Sodium Chloride (Ns 0.9% 1000 Ml) 1,000 mls @ 125 mls/hr IV PER RATE [facility] Last Admin: 07/30/19 05:36 Dose: 125 mls/hr Vancomycin HCl 1,500 mg/ (Sodium Chloride) 250 mls @ 166.667 mls/hr IVPB Q8H [facility] Last Admin: 07/30/19 08:05 Dose: 166.667 mls/hr Ibuprofen (Motrin Tab*) 600 mg PO QID PRN PRN Reason: PAIN - MODERATE Last Admin: 07/28/19 23:34 Dose: 600 mg Lorazepam (Ativan Tab(*)) 0.5 mg PO Q4H PRN PRN Reason: ANXIETY Miscellaneous (Ativan Pyxis Hernandez) 1 ea N/A .ATIVAN IV HERNANDEZ PRN PRN Reason: PYXIS HERNANDEZ Nicotine (Nicotine Patch 21 Mg/24 Hr*) 1 patch TRANSDERM 0900 [facility] Last Admin: 07/30/19 08:10 Dose: Not Given Nicotine Polacrilex (Nicotine Gum*) 2 mg PO Q2H PRN PRN Reason: CRAVING Pharmacy Consult (Vancomycin Per Pharmacy*) 1 note FOLLOW UP .VANC PER PHARMACY [facility]; Protocol Pharmacy Profile Note (Nicotine Patch Removal Note*) 1 note PATCH OFF 2100 [facility] Last Admin: 07/29/19 21:16 Dose: 1 note Pharmacy Profile Note (Vancomycin Trough Check) 1 note FOLLOW UP 0730 ONE Stop: 07/31/19 07:31 Vital Signs - 8 hr 07/30/19 07/30/19 07:15 08:00 Temperature 98.3 F Pulse Rate 75 Respiratory 16 Rate Blood Pressure 130/69 (mmHg) O2 Sat by Pulse 99 99 Oximetry Oxygen Devices in Use Now: None Appearance: NAD Eyes: No Scleral Icterus Ears/Nose/Mouth/Throat: - - very poor dentition. Neck: NL Appearance and Movements; NL JVP, Trachea Midline Respiratory: Symmetrical Chest Expansion and Respiratory Effort, Clear to Auscultation Cardiovascular: NL Sounds; No Murmurs; No JVD, RRR Lymphatic: No Cervical Adenopathy Extremities: No Edema Skin: - - right forearm with erythema and induration but no clear fluctuance, tender to palpation, with then marked lines. Neurological: Alert and Oriented x 3, NL Sensation Nutrition: Taking PO's Result Diagrams: 07/30/19 09:17 07/30/19 09:17 Additional Lab and Data: Lab Results 07/28/19 07/28/19 Range/Units 19:52 19:52 WBC 16.4 H (3.5-10.8) 10^3/uL RBC 4.93 (4.18-5.48) 10^6 /uL Hgb 15.5 (14.0-18.0) g/dL Hct 44 (42-52) % MCV 90 (80-94) fL MCH 32 H (27-31) pg MCHC 35 (31-36) g/dL RDW 13 (10-15) % Plt Count 171 (150-450) 10^3/uL MPV 9.6 (7.4-10.4) fL Neut % (Auto) 78.2 % Lymph % (Auto) 11.0 % [place] % (Auto) 7.7 % Eos % (Auto) 2.8 % Baso % (Auto) 0.3 % Absolute Neuts (auto) 12.8 H (1.5-7.7) 10^3/ul Absolute Lymphs (auto) 1.8 (1.0-4.8) 10^3/ul Absolute Monos (auto) 1.3 H (0-0.8) 10^3/ul Absolute Eos (auto) 0.5 (0-0.6) 10^3/ul Absolute Basos (auto) 0.1 (0-0.2) 10^3/ul Absolute Nucleated RBC 0.0 10^3/ul Nucleated RBC % 0.1 INR (Anticoag Therapy) 1.00 (0.82-1.09) APTT 37.2 (26.0-38.0) seconds Microbiology and Other Data: Microbiology 07/28/19 19:52 Aerobic Blood Culture - Preliminary Blood Venous No Growth Day 1 Anaerobic Blood Culture - Preliminary No Growth Day 1 07/28/19 19:52 Aerobic Blood Culture - Preliminary Blood Venous No Growth Day 1 Anaerobic Blood Culture - Preliminary No Growth Day 1 right Arm I&D on 07/27/19 with MRSA sens bactrim, doxy, vanco but resistant to clinda, cefazolin Assess/Plan/Problems-Billing Assessment: 34 y/o male presented with right arm swelling after popping right forearm pimple , found to have localized abscess s/p I&D and right arm cellulitis, confirmed to MRSA. - Patient Problems (1) Cellulitis Current Visit: Yes Status: Acute Code(s): L03.90 - CELLULITIS, UNSPECIFIED SNOMED Code(s): 845260802 Comment: - right arm cellulitis after popping a pimple with exacto knife - local I&D done in ED, Culture showing MRSA+ - Continue iv vancomycin - US with localizd 0.4cm thick fluid collection on 07/29. - contact precaution - appreciate Ortho recs, no e/o septic joint (2) Sepsis Current Visit: Yes Status: Acute Comment: Leukocytosis, Tachycardia, with source MRSA cellulitis. No lactic acidosis. resolved. f/u BCxs: NGTD x 1 day so far (3) Tobacco dependence Current Visit: Yes Status: Acute Code(s): F17.200 - NICOTINE DEPENDENCE, UNSPECIFIED, UNCOMPLICATED SNOMED Code(s): 76814770 Comment: nicotine gum (4) DVT prophylaxis Current Visit: Yes Status: Acute Code(s): Z29.9 - ENCOUNTER FOR PROPHYLACTIC MEASURES, UNSPECIFIED SNOMED Code(s): 729796558 Comment: sc heparin Status and Disposition: Inpatient Medicine for continued IV vancomycin.
--- NOTE | 2019-07-30 15:34 | PN ---
Progress Note - Progress Note Date of Service: 07/30/19 Note: I saw and examined Micah. Pain, swelling, erythema, are all greatly improved. I was able to express some pus from the wound. Painless elbow and wrist range of motion. No tenderness except for right around the wound. Continue antibiotics and elevation. He can start half-strength hydrogen peroxide warm soaks daily for 10-15 min. Jacob Patton MD
[2019-07-30] MEDS: Nicotine Patch Removal NOTE PATCH OFF SCH (21:21)
[2019-07-31] MEDS: Vancomycin(*) 1,500 MG in NS 0.9% 250 ML* 250 ML IVPB SCH ×2 (00:18→08:17)
[2019-07-31] MEDS: NS 0.9% 1000 ML** 1,000 ML IV SCH ×2 (00:24→12:23)
[2019-07-31] MEDS: Heparin VIAL(*) 5000 UNITS/ML VIAL (FIVE THOUSAND) SUBCUT SCH ×2 (06:07→15:18)
[2019-07-31] MEDS ORDERED: Vancomycin Trough Check NOTE FOLLOW UP ONE (07:30)
[2019-07-31] MEDS: Nicotine PATCH 21 MG/24 HR* PATCH TRANSDERM SCH (08:19)
[2019-07-31 13:45] VITALS: BP 122/77
--- NOTE | 2019-07-31 13:55 | PN ---
Progress Note - Progress Note Date of Service: 07/31/19 SOAP: Subjective: Pt seen and examined at bedside. Reports less pain and swelling. Denies F/c Vital Signs: Temp Pulse Resp BP Pulse Ox 98.1 F 71 16 122/77 100 07/31/19 11:49 07/31/19 11:49 07/31/19 11:49 07/31/19 11:49 07/31/19 11:49 Laboratory Last Values WBC 8.8 10^3/uL (3.5-10.8) 07/30/19 09:17 RBC 4.44 10^6 /uL (4.18-5.48) 07/30/19 09:17 Hgb 13.8 g/dL (14.0-18.0) L 07/30/19 09:17 Hct 40 % (42-52) L 07/30/19 09:17 MCV 90 fL (80-94) 07/30/19 09:17 MCH 31 pg (27-31) 07/30/19 09:17 MCHC 35 g/dL (31-36) 07/30/19 09:17 RDW 13 % (10-15) 07/30/19 09:17 Plt Count 149 10^3/uL (150-450) L 07/30/19 09:17 MPV 9.0 fL (7.4-10.4) 07/30/19 09:17 Neut % (Auto) 72.4 % 07/30/19 09:17 Lymph % (Auto) 15.2 % 07/30/19 09:17 [place] % (Auto) 6.8 % 07/30/19 09:17 Eos % (Auto) 4.9 % 07/30/19 09:17 Baso % (Auto) 0.7 % 07/30/19 09:17 Absolute Neuts (auto) 6.4 10^3/ul (1.5-7.7) 07/30/19 09:17 Absolute Lymphs (auto) 1.3 10^3/ul (1.0-4.8) 07/30/19 09:17 Absolute Monos (auto) 0.6 10^3/ul (0-0.8) 07/30/19 09:17 Absolute Eos (auto) 0.4 10^3/ul (0-0.6) 07/30/19 09:17 Absolute Basos (auto) 0.1 10^3/ul (0-0.2) 07/30/19 09:17 Absolute Nucleated RBC 0.0 10^3/ul 07/30/19 09:17 Nucleated RBC % 0.2 07/30/19 09:17 INR (Anticoag Therapy) 1.00 (0.82-1.09) 07/28/19 19:52 APTT 37.2 seconds (26.0-38.0) 07/28/19 19:52 Sodium 140 mmol/L (135-145) 07/30/19 09:17 Potassium 4.0 mmol/L (3.5-5.0) 07/30/19 09:17 Chloride 108 mmol/L (101-111) 07/30/19 09:17 Carbon Dioxide 25 mmol/L (22-32) 07/30/19 09:17 Anion Gap 7 mmol/L (2-11) 07/30/19 09:17 BUN 8 mg/dL (6-24) 07/30/19 09:17 Creatinine 0.71 mg/dL (0.67-1.17) 07/30/19 09:17 Est GFR ( Amer) 151.9 (>60) 07/30/19 09:17 Est GFR (Non-Af Amer) 125.5 (>60) 07/30/19 09:17 BUN/Creatinine Ratio 11.3 (8-20) 07/30/19 09:17 Glucose 107 mg/dL (70-100) H 07/30/19 09:17 Lactic Acid 1.0 mmol/L (0.5-2.0) 07/28/19 19:52 Calcium 9.0 mg/dL (8.6-10.3) 07/30/19 09:17 Total Bilirubin 0.80 mg/dL (0.2-1.0) 07/28/19 19:52 AST 22 U/L (13-39) 07/28/19 19:52 ALT 24 U/L (7-52) 07/28/19 19:52 Alkaline Phosphatase 81 U/L (34-104) 07/28/19 19:52 C-Reactive Protein 35.70 mg/L (<8.01) H 07/30/19 09:17 Total Protein 6.9 g/dL (6.4-8.9) 07/28/19 19:52 Albumin 4.0 g/dL (3.2-5.2) 07/28/19 19:52 Globulin 2.9 g/dL (2-4) 07/28/19 19:52 Albumin/Globulin Ratio 1.4 (1-3) 07/28/19 19:52 Urine Color Yellow 07/29/19 03:20 Urine Appearance Clear 07/29/19 03:20 Urine pH 6.0 (5-9) 07/29/19 03:20 Ur Specific [place] 1.016 (1.010-1.030) 07/29/19 03:20 Urine Protein Negative (Negative) 07/29/19 03:20 Urine Ketones Trace (Negative) A 07/29/19 03:20 Urine Blood Negative (Negative) 07/29/19 03:20 Urine Nitrate Negative (Negative) 07/29/19 03:20 Urine Bilirubin Negative (Negative) 07/29/19 03:20 Urine Urobilinogen Negative (Negative) 07/29/19 03:20 Ur Leukocyte Esterase Negative (Negative) 07/29/19 03:20 Urine Glucose Negative (Negative) 07/29/19 03:20 Urine Ascorbic Acid * (Negative) A 07/29/19 03:20 Vancomycin Trough 16.7 mcg/mL 07/31/19 06:22 Objective: A&O x3, NAD Less swelling and erythema around the abscess, mild drainage, No swelling except around the abscess, full ROM elbow, wrist and hand, NVI distally. Assessment: 34 yo male right forearm cellulitis Plan: Continue abx Continue soaks daily Continue ROM exercises Follow up with Dr. Patton in 1 week D/c home today when medically stable
--- NOTE | 2019-08-02 13:05 | DS ---
DISCHARGE SUMMARY: DATE OF ADMISSION: 07/28/19 DATE OF DISCHARGE: 07/31/19 ADMITTING PROVIDER: Mena Barboza MD. ATTENDING PHYSICIAN ON DAY OF DISCHARGE: Erich Almonte MD. PRIMARY CARE PROVIDER: None currently, he was referred to the [facility] on discharge. CHIEF COMPLAINT: Right arm cellulitis, swelling, erythema progressive. PRINCIPAL DIAGNOSIS: Right arm methicillin-resistant Staphylococcus aureus cellulitis causing sepsis. HISTORY OF PRESENT ILLNESS/HOSPITAL COURSE: Micah Kuhn is a 34-year-old male with past medical history of weekend binge drinking. He had been seen in the emergency room day prior to admission when he had an I and D of his right arm abscess. He was prescribed clindamycin and had taken 2 doses of that, but the arm had progressively swelled further with streaking erythema up towards his right axilla region. He re-presented to [facility] [place] Emergency Room and was found to have leukocytosis of 16.4 and tachycardia at 105 meeting sepsis criteria. His I and D from the day prior had showed evidence of MRSA positive that was sensitive to vancomycin, Bactrim, and doxycycline, but was notably resistant to clindamycin that he had been empirically prescribed. He was placed on IV vancomycin and a soft tissue ultrasound was obtained given concern for further fluid collection on physical exam. It did show a 3.1 x 2.6 x 0.4 cm thickness fluid collection. Orthopedic service was consulted given the patient's swelling that seemed to involve the elbow, though he did notably have no pain with movement of that. There was no concern by the orthopedic service for a septic joint and they continued to follow the case and did not recommend any further irrigation or drainage, though some pus was mainly expressed by Dr. Patton the day prior to discharge and again by this provider on the day of discharge. It was planned to continue Bactrim for 10 days as an outpatient. His leukocytosis resolved. CRP dropped from 87 on admission to 35 on day prior to discharge. He was given referral to [facility] given his lack of primary care. DISCHARGE MEDICATIONS: Include: 1. Bactrim b.i.d. for 7 additional days. 2. Tegaderm bandage with pad. 3. Ibuprofen 600 mg p.o. 4 times daily p.r.n. DISCHARGE DIET: Unrestricted. CONDITION: Improved. DISPOSITION: Home. FOLLOWUP: Please follow up with [facility] within 7 days of discharge or otherwise establish with a primary care provider in [facility] where he has been seen previously before provider left. ADDENDUM: Please note that the patient returned to the emergency room a day after discharge with what sounds like report of generalized pruritic rash and his Bactrim was suspected to be the cause. He was changed to doxycycline and given prednisone and Benadryl. TIME SPENT ON DISCHARGE: 35 minutes. [id number]/CPS #: [id number] ALIZE
== END 2019-07-31 15:30 | disposition home or self-care (01) ==
LOC: ED 19:19 → MEDTELE 21:36
PROVIDERS: ADMIT Internal Medicine; ATTEND Internal Medicine
DX: A41.02 Sepsis due to Methicillin resistant Staphylococcus aureus (principal); L03.113 Cellulitis of right upper limb; Z79.899 Other long term (current) drug therapy; F17.210 Nicotine dependence, cigarettes, uncomplicated; F41.9 Anxiety disorder, unspecified; R21 Rash and other nonspecific skin eruption; R60.0 Localized edema
CPT/HCPCS: 36415; 80048; 80053; 80202; 81003; 83605; 85025; 85610; 85730; 86140; 87040; 96361; 96365; 96366; 96372; 96375; 99284; 99406; A9270-GY; G0378; J1644; J2060; J3370

== ENCOUNTER 2019-08-01 13:02 | Emergency (ER) | payer BC ==
[2019-08-01 13:09] VITALS: BP 135/85
--- NOTE | 2019-08-01 13:40 | ED ---
Allergic Reaction/Systemic - HPI Summary HPI Summary: 34-year-old male with significant past medical history of an abscess on his right forearm status post incision and drainage 2 days ago presents to the emergency department today for an allergic reaction. He states he started Bactrim this morning for treatment of his abscess and began having a diffuse macular rash today. She denies shortness of breath, trouble speaking, trouble managing secretions, abdominal pain, lightheadedness or other signs of anaphylaxis. His other complaints today and is resting comfortably in the room. He was recently admitted for this abscess and given a dose of vancomycin IV for MRSA positive culture. He denies fever, chest pain, shortness of breath , abdominal pain, pain with urination. - History of Current Complaint Chief Complaint: EDRashSkinAbscess Time Seen by Provider: 08/01/19 13:31 Hx Obtained From: Patient Onset/Duration: Gradual Onset, Started hours ago Timing: Constant Severity Initially: Mild Severity Currently: Mild Pain Intensity: 0 Pain Scale Used: 0-10 Numeric Location: Diffuse Character: Pruritus, Hives Associated Signs And Symptoms: Positive: Rash. Negative: Abdominal Pain, Chest Pain, Cough Wheezing, Diaphoresis, Difficulty Breathing, Nausea, Syncope, Throat Tightening - Related Hx Possible Reaction To: Medications - bactrim - Allergies/Home Medications Allergies/Adverse Reactions: Allergies Allergy/AdvReac Type Severity Reaction Status Date / Time Sulfa (Sulfonamide Allergy Rash Verified 08/01/19 14:00 Antibiotics) PMH/Surg Hx/FS Hx/Imm Hx Endocrine/Hematology History: Denies: Hx Anticoagulant Therapy, Hx Diabetes Respiratory History: Denies: Hx Asthma Musculoskeletal History: Reports: Other Musculoskeletal History - OCC RIGHT SCIATIC PAIN Sensory History: Reports: Hx Contacts or Glasses Denies: Hx Hearing Aid Opthamlomology History: Reports: Hx Contacts or Glasses - Surgical History Surgery Procedure, Year, and Place: AGE 16 RIGHT INGUINAL HERNIA. APPENDECTOM[place] [facility] [place]GUIN[place] [facility] [place]x Anesthesia Reactions: No - Immunization History Date of Tetanus Vaccine: Last year, per patient Date of Influenza Vaccine: None Infectious Disease History: No Infectious Disease History: Denies: Traveled Outside the [place] in Last 30 Days - Family History Known Family History: Positive: Non-Contributory - Social History Alcohol Use: Weekly Alcohol Amount: 1-2 BEERS/DAY Substance Use Type: Reports: None Smoking Status (MU): Heavy Every Day Tobacco Smoker Type: Cigarettes Amount Used/How Often: 1 PPD Length of Time of Smoking/Using Tobacco: 10 YRS Have You Smoked in the Last Year: Yes Review of Systems Constitutional: Negative Eyes: Negative ENT: Negative Cardiovascular: Negative Respiratory: Negative Gastrointestinal: Negative Genitourinary: Negative Musculoskeletal: Negative Positive: Rash Neurological: Negative Psychological: Normal All Other Systems Reviewed And Are Negative: Yes Physical Exam Triage Information Reviewed: Yes Vital Signs On Initial Exam: Initial Vitals Temp Pulse Resp BP Pulse Ox 99.3 F 75 19 135/85 99 08/01/19 13:06 08/01/19 13:06 08/01/19 13:06 08/01/19 13:06 08/01/19 13:06 Vital Signs Reviewed: Yes Appearance: Positive: Well-Appearing, No Pain Distress, Well-Nourished Skin: Positive: Warm, Skin Color Reflects Adequate Perfusion, Other - diffuse flat pinpoint macular rash throughout the body. The rash does not resemble urticaria however patient reports as being pruritic. Eyes: Positive: EOMI, DARIO ENT: Positive: Hearing grossly normal, Pharynx normal Cardiovascular: Positive: RRR, S1, S2 Abdomen Description: Positive: Nontender, Soft Bowel Sounds: Positive: Present Neurological: Positive: Sensory/Motor Intact, Alert, Oriented to Person Place, Time, Normal Gait, Speech Normal Psychiatric: Positive: Normal AVPU Assessment: Alert Procedures - Sedation Patient Received Moderate/Deep Sedation with Procedure: No Diagnostics - Vital Signs Vital Signs Temp Pulse Resp BP Pulse Ox 08/01/19 13:06 99.3 F 75 19 135/85 99 - Laboratory Lab Statement: Any lab studies that have been ordered have been reviewed, and results considered in the medical decision making process. Allergic Reaction Course/Dx - Course Course Of Treatment: Patient was evaluated in the emergency department for possible allergic reaction to Bactrim. The patient was seen and evaluated his vital signs are stable and he is afebrile. He is comfortable and had no difficulty breathing and no compromise of his airway. He was showing no evidence of anaphylaxis. Based on physical exam there is likely his allergic reaction is due to Bactrim. He is given prednisone, Benadryl, famotidine in the emergency department for his allergic reaction. He was also given 1 dose of doxycycline for his abscess. Doxycycline was chosen as his prior sensitivity report from his recent hospitalization showed effectiveness of doxycycline. He was given a prescription for doxycycline 100 mg to be taken twice a day for 7 days presents fast. He was also given a prescription for short burst of steroids and Benadryl to prevent further allergic rebound. The patient was told to follow-up with his primary care provider for further evaluation and management of symptoms after completing his antibiotics. He was told to return to the emergency department immediately if Any new or worsening symptoms. The patient's chart was modified to show an allergy to sulfa drugs which causes a rash. - Diagnoses Differential Diagnosis/HQI/PQRI: Positive: Airway Obstruction, Anaphylaxis, Angioedema, Local Allergic Reaction, Urticaria Provider Diagnoses: Medication reaction Discharge ED - Sign-Out/Discharge Documenting (check all that apply): Patient Departure - Discharge Plan Condition: Stable Disposition: HOME Prescriptions: diPHENhydraMINE PO* [Benadryl PO 50 MG CAP*] 50 mg PO BID #8 cap DOXYcycline CAP(*) [DOXYcycline 100MG CAP(*)] 100 mg PO BID 7 Days #14 cap predniSONE TAB* [Deltasone TAB*] 50 mg PO ONCE #4 tab Patient Education Materials: Antibiotic Medication Allergy (ED) Referrals: [facility] [Outside] - 7 Days No Primary Care Phys,NOPCP [Primary Care Provider] - Additional Instructions: You were evaluated in the emergency Department for an allergic reaction to Bactrim. Please be aware Bactrim as a sulfa derivative and you are likely allergic to other sulfa drugs. Please discontinue taking your Bactrim antibiotic. I prescribed doxycycline which will treat your abscess. Please take 100 mg doxycycline twice a day for 7 days. I have also given you a steroid , Please take the steroid once a day for 4 days. Please also take 50 mg Benadryl twice daily for 4 days. Please follow-up with your primary care provider once you have finished your course of antibiotics for further evaluation and management. Please return to the emergency department immediately if you develop any new or worsening symptoms. - Billing Disposition and Condition Condition: STABLE Disposition: Home
[2019-08-01] MEDS ORDERED: diPHENhydraMINE PO* 50 MG PO ONE (13:43)
[2019-08-01] MEDS ORDERED: DOXYcycline CAP(*) 100 MG PO ONE (13:44)
[2019-08-01] MEDS ORDERED: Famotidine TAB* 20 MG PO ONE (13:44)
== END 2019-08-01 14:05 | disposition home or self-care (01) ==
LOC: ED 13:02
DX: T36.8X5A Adverse effect of other systemic antibiotics, initial encounter (principal); Y92.9 Unspecified place or not applicable; F17.210 Nicotine dependence, cigarettes, uncomplicated; Z88.2 Allergy status to sulfonamides; Z90.89 Acquired absence of other organs
CPT/HCPCS: 99282; A9270-GY; J7512